=== PATIENT | male | born 1965 | race Caucasian/White ===

== ENCOUNTER 2018-08-22 14:51 | Emergency (ER) | payer OTHER ==
[~2018-08-22] VITALS: Ht 188 cm; Wt 93.4 kg
[~2018-08-22 14:51] MED LIST: CETI10 PO; CETI5 PO; ESZO3 PO; HYDACE5 PO; IBUPROFEN200 MG; ONDA4ODT MM; ONDA4ODT SL; Omeprazole20 M1; POLY17UD PO; ZOLP10 PO; ZOLP5 PO
[2018-08-22] MEDS ORDERED: ELIQUIS5 MG PO (15:34)
== END 2018-08-22 15:43 | disposition home or self-care (01) ==
LOC: ER 14:51
DX: I82.4Z1 Acute embolism and thrombosis of unspecified deep veins of right distal lower extremity (principal); Z88.5 Allergy status to narcotic agent; Z88.8 Allergy status to other drugs, medicaments and biological substances
CPT/HCPCS: 99282

== ENCOUNTER 2019-07-17 12:35 | Day surgery (SDC) | payer OTHER ==
[~2019-07-17 12:35] MED LIST changes: +ELIQUIS5 MG PO; -Omeprazole20 M1; +Omeprazole20 M1 PO
== END 2019-07-17 16:30 | disposition home or self-care (01) ==
LOC: ORSCSDS 12:35
PROVIDERS: Orthopaedic Surgery
PROC: 0SBD4ZZ Excision of Left Knee Joint, Percutaneous Endoscopic Approach (ICD-10-PCS; principal; 2019-07-17 13:45)
PROC: 0SQD4ZZ Repair Left Knee Joint, Percutaneous Endoscopic Approach (ICD-10-PCS; principal; 2019-07-17 13:45)
DX: S83.242A Other tear of medial meniscus, current injury, left knee, initial encounter (principal); M17.12 Unilateral primary osteoarthritis, left knee; M25.562 Pain in left knee; K21.9 Gastro-esophageal reflux disease without esophagitis; Z79.899 Other long term (current) drug therapy
CPT/HCPCS: A9270-GY; J0171; J0690; J1100; J1885; J2250; J2405; J2795; J3010

== ENCOUNTER → 2021-02-18 | Outpatient (CLI) | payer OTHER ==
[2021-02-25 09:19] LABS: Stool Occult Bld Immuno 1 Negative (NEGATIVE)
== END | disposition home or self-care (01) ==
LOC: LAB SHORT 09:00 → LAB 09:00 → LAB SHORT 02-24 09:00 → LAB 02-24 09:00
PROVIDERS: Family Medicine
DX: Z00.00 Encounter for general adult medical examination without abnormal findings (principal); Z87.19 Personal history of other diseases of the digestive system
CPT/HCPCS: G0328

== ENCOUNTER 2023-05-25 06:48 | Day surgery (SDC) | payer OTHER ==
[~2023-05-25] VITALS: Ht 188 cm; Wt 102.8 kg
[2023-05-25 08:48] VITALS: BP 110/81
== END 2023-05-25 08:52 | disposition home or self-care (01) ==
LOC: ORSCSDS 06:48
PROVIDERS: Surgery
PROC: 0DBP8ZX Excision of Rectum, Via Natural or Artificial Opening Endoscopic, Diagnostic (ICD-10-PCS; principal; 2023-05-25 08:00)
DX: Z12.11 Encounter for screening for malignant neoplasm of colon (principal); K62.1 Rectal polyp; Z79.899 Other long term (current) drug therapy
CPT/HCPCS: 88305; J2704; J7120

== ENCOUNTER 2024-08-15 06:58 | Day surgery (SDC) | payer OTHER ==
[~2024-08-15] VITALS: Ht 190.5 cm; Wt 107.7 kg
[2024-08-15] VITALS (11 sets, daily range): BP systolic 116–147; BP diastolic 72–89
[~2024-08-15 06:58] MED LIST changes: +Acetaminophen 500 MG Tab PO SCH; +CeFAZolin Sodium 2,000 MG VIAL ONE; +CeFAZolin Sodium 2,000 MG in NS 100 ML IV SCH; +Chlorhexidine Mouth Care 15 ML UDC MT SCH; +Lactated Ringer's 1,000 ML IV SCH; +OxyCODONE HCL 10 MG TABCR PO SCH; +Ropivacaine 0.5% HCl/Pf 123.125 MG,EPINEPHrine HCL 0.25 MG,Ketorolac Tromethamine 15 MG... INFIL SCH; +Tranexamic Acid 100 ML IV SCH
--- NOTE | 2024-08-15 07:36 | NUR ---
Ambulatory in Day Surgery History, Chart, Medications and Allergies reviewed before start of procedure. Pre-Op teaching done. Pt verbalizes understanding.
[2024-08-15] MEDS ORDERED: propofoL 40 ML IV ONE (08:46)
[2024-08-15] MEDS ORDERED: FentaNYL Citrate 50 MCG/ML 2 ML Injection ONE (08:46)
[2024-08-15] MEDS ORDERED: Midazolam HCl 1MG / ML 2ML Vial ONE (09:36)
[2024-08-15] MEDS ORDERED: Midazolam HCl 1MG / ML 2ML Vial IV SCH (09:40)
[2024-08-15] MEDS ORDERED: propofoL 100 ML IV ONE (09:46)
[2024-08-15] MEDS ORDERED: Bupivacaine 0.5% HCl 5 MG/ML 30MLVIAL ONE (09:49)
[2024-08-15] MEDS ORDERED: OxyCODONE HCL 5 MG TAB PO PRN ×2 (09:50→09:55)
[2024-08-15] MEDS ORDERED: DiphenhydrAMINE HCL 25 MG Cap PO PRN (09:55)
[2024-08-15] MEDS ORDERED: FLU VACC TS2024-25(6MOS UP)/PF 45 MCG/0.5 ML SYRINGE IM PRN (09:55)
[2024-08-15] MEDS ORDERED: Promethazine HCl 25 MG Tab PO PRN (09:55)
[2024-08-15] MEDS ORDERED: Bisacodyl 10 MG Supp PR PRN (09:55)
[2024-08-15] MEDS ORDERED: Ondansetron HCl 2 MG / ML 2ML Vial IV PRN (10:00)
[2024-08-15] MEDS ORDERED: HYDROmorphone HCl/Pf 1MG SYR IV PRN (10:00)
[2024-08-15] MEDS ORDERED: Magnesium Hydroxide Conc 10 ML UDC PO PRN (10:00)
[2024-08-15] MEDS ORDERED: Lactated Ringer's 1,000 ML IV SCH (10:00)
[2024-08-15] MEDS ORDERED: Metoclopramide HCl 5MG / ML 2ML Vial IV PRN (10:00)
[2024-08-15] MEDS ORDERED: ePHEDrine Sulfate 50 MG/ML 1ML Injection ONE (10:06)
--- NOTE | 2024-08-15 10:29 | NUR ---
08/15/24 1029 Cassidy,Malka SPINAL BLOCK COMPLETED BY UPON ENTRY TO OR. PATIENT TOLERATED WELL.
[2024-08-15] MEDS ORDERED: propofoL 20 ML IV ONE ×2 (10:51→11:03)
[2024-08-15] MEDS ORDERED: Ondansetron HCl 2 MG / ML 2ML Vial ONE (11:52)
[2024-08-15] MEDS ORDERED: Ketorolac Tromethamine 15mg Vial IV SCH (12:50)
[2024-08-15] MEDS ORDERED: Acetaminophen 500 MG Tab PO SCH (16:00)
--- NOTE | 2024-08-15 16:19 | NUR ---
Pt. is sitting up in a recliner when he welcomes my visit. Spouse is present at bedside. Facilitate a life review and re-establish rapport as Pt. is known to this financial economist from the community. Listen with empathy and interest. Pt. verbalized an expectation to be discharged this afternoon. Pt. displayed evidence of confidence. Both Pt. and spouse verbalized gratitude for the spiritual care visit.
[2024-08-15] MEDS ORDERED: ELIQUIS2.5 MG PO (16:48)
--- NOTE | 2024-08-15 17:05 | NUR ---
DISCHARGE PT HAS CLEARED THERAPY. PAIN WELL CONTROLLED. EATING, DRINKING, & VOIDING WELL. NATHALIA & JENNIFER PACK SENT w/ PT. ESCORTED OUT VIA W/C.
[2024-08-15] MEDS ORDERED: CeFAZolin Sodium 2,000 MG in NS 100 ML IV SCH (18:00)
[2024-08-15] MEDS ORDERED: Docusate Sodium 100 MG Cap PO SCH (21:00)
[2024-08-16] MEDS ORDERED: Omeprazole 20 MG CapCR PO SCH (06:00)
[2024-08-16] MEDS ORDERED: Apixaban 5 MG Tab PO SCH (09:00)
== END 2024-08-15 17:05 | disposition home or self-care (01) ==
LOC: ORSCMMR 06:58 → ORD 08:15 → ORSCMMR 08:15 → SURS 12:29 → ORSCMMR 17:05
PROVIDERS: Orthopaedic Surgery
PROC: 8E0Y0CZ Robotic Assisted Procedure of Lower Extremity, Open Approach (ICD-10-PCS; principal; 2024-08-15 08:15)
PROC: 0SRD0JA Replacement of Left Knee Joint with Synthetic Substitute, Uncemented, Open Approach (ICD-10-PCS; principal; 2024-08-15 08:15)
DX: M17.12 Unilateral primary osteoarthritis, left knee (principal); G47.33 Obstructive sleep apnea (adult) (pediatric)
CPT/HCPCS: 73560-LT; 97110; 97116; 97161; 97530; A9270; C1713; C1776; J0171; J0690; J0735; J1885; J2250; J2405; J2704; J2795; J3010; J7120

== ENCOUNTER 2024-10-30 15:54 | Inpatient (IN) | payer OTHER ==
[~2024-10-30] VITALS: Ht 190.5 cm; Wt 108.9 kg
[~2024-10-30 15:54] MED LIST changes: -Acetaminophen 500 MG Tab PO SCH; -CeFAZolin Sodium 2,000 MG VIAL ONE; -CeFAZolin Sodium 2,000 MG in NS 100 ML IV SCH; -Chlorhexidine Mouth Care 15 ML UDC MT SCH; +ELIQUIS2.5 MG PO; -Lactated Ringer's 1,000 ML IV SCH; -OxyCODONE HCL 10 MG TABCR PO SCH; -Ropivacaine 0.5% HCl/Pf 123.125 MG,EPINEPHrine HCL 0.25 MG,Ketorolac Tromethamine 15 MG... INFIL SCH; -Tranexamic Acid 100 ML IV SCH
[2024-10-30 16:49] LABS: BASOPHILS ABSOLUTE AUTO 0.05 K/mm3 (0.00-0.23); BASOPHILS PERCENT AUTO 1 % (0-2); EOSINOPHILS ABSOLUTE AUTO 0.26 K/mm3 (0.00-0.68); EOSINOPHILS PERCENT AUTO 4 % (0-6); Hematocrit 38.7 % (37.0-53.0); Hemoglobin 12.2 g/dL (13.5-17.5); IMMATURE GRAN ABSOLUTE AUTO 0.03 K/mm3 (0.00-0.10); IMMATURE GRAN PERCENT AUTO 0 % (0-1); LYMPHOCYTES PERCENT AUTO 20 % (21-46); MONOCYTES ABSOLUTE AUTO 0.71 K/mm3 (0.16-1.47); MONOCYTES PERCENT AUTO 10 % (4-13); Mean Corpuscular HGB 24.1 pg (26.0-34.0); Mean Corpuscular HGB Conc 31.5 g/dL (31.5-36.5); Mean Corpuscular Volume 77 fL (80-100); NEUTROPHILS ABSOLUTE AUTO 4.53 K/mm3 (1.96-9.15); NEUTROPHILS PERCENT AUTO 65 % (41-73); RDW Coefficient Variation 15.2 % (11.7-14.2); RDW Standard Deviation 41.7 fL (35.1-46.3); Red Blood Cell Count 5.06 M/mm3 (4.30-5.90); White Blood Cell Count 6.98 K/mm3 (4.00-11.30)
[2024-10-30 17:04] LABS: Albumin, Blood 3.9 g/dL (3.4-5.0); Bilirubin, Total 0.4 mg/dL (0.1-1.0); Bun/Creatinine Ratio 17.2 (12.0-20.0); Calcium, Blood 9.5 mg/dL (8.5-10.1); Creatinine, Blood 0.99 mg/dL (0.60-1.20); Globulin, Blood 4.1 g/dL (2.2-4.0); Potassium, Blood 3.8 mmol/L (3.5-5.5)
[2024-10-30 17:07] LABS: Mean Platelet Volume 11.1 fL (9.1-12.4); Platelet Count 228 K/mm3 (150-400)
[2024-10-30] MEDS ORDERED: HYDROmorphone HCl/Pf 1MG SYR IV ONE (19:30)
[2024-10-30 19:34] LABS: Source, Urine Clean Catch
[2024-10-30 19:39] LABS: Appearance, Urine Clear (Clear); Bilirubin, Urine Neg (Neg); Blood, Urine Neg (Neg); Glucose Qualitative, Urine Neg (Neg); Ketones, Urine Neg (Neg); Leukocyte Esterase, Urine Neg (Neg); Nitrite, Urine Neg (Neg); Protein, Urine Neg (Neg); Urobilinogen, Urine NORM (Normal)
[2024-10-30 19:40] LABS: Color, Urine Pale Yellow (P-Yellow)
[2024-10-30] MEDS ORDERED: NS 1,000 ML IV SCH (19:40)
[2024-10-30] MEDS ORDERED: HYDROmorphone HCl/Pf 1MG SYR IV PRN (20:15)
[2024-10-30] MEDS ORDERED: Lactated Ringer's 1,000 ML IV SCH (20:15)
[2024-10-30] MEDS ORDERED: Ondansetron HCl 2 MG / ML 2ML Vial IV PRN (20:15)
[2024-10-30] MEDS ORDERED: FLU VACC TS2024-25(6MOS UP)/PF 45 MCG/0.5 ML SYRINGE IM ONE (20:20)
[2024-10-30] MEDS ORDERED: Ketorolac Tromethamine 15mg Vial IV PRN (20:30)
[2024-10-30] MEDS ORDERED: Famotidine 20 MG Tab PO SCH (21:00)
[2024-10-31] VITALS (16 sets, daily range): BP systolic 136–173; BP diastolic 78–96
[2024-10-31] MEDS ORDERED: Piperacillin/Tazobactam Sod 3.375 GM in NS 100 ML IV SCH
[2024-10-31] MEDS ORDERED: DiphenhydrAMINE HCl 50 MG/ML 1ML Vial IV ONE (04:05)
[2024-10-31 05:11] LABS: BASOPHILS ABSOLUTE AUTO 0.05 K/mm3 (0.00-0.23); BASOPHILS PERCENT AUTO 1 % (0-2); EOSINOPHILS PERCENT AUTO 4 % (0-6); Hematocrit 34.1 % (37.0-53.0); Hemoglobin 10.5 g/dL (13.5-17.5); IMMATURE GRAN ABSOLUTE AUTO 0.01 K/mm3 (0.00-0.10); IMMATURE GRAN PERCENT AUTO 0 % (0-1); LYMPHOCYTES ABSOLUTE AUTO 1.26 K/mm3 (0.84-5.20); LYMPHOCYTES PERCENT AUTO 25 % (21-46); MONOCYTES ABSOLUTE AUTO 0.56 K/mm3 (0.16-1.47); MONOCYTES PERCENT AUTO 11 % (4-13); Mean Corpuscular HGB Conc 30.8 g/dL (31.5-36.5); Mean Corpuscular Volume 78 fL (80-100); Mean Platelet Volume 10.5 fL (9.1-12.4); NEUTROPHILS ABSOLUTE AUTO 3.05 K/mm3 (1.96-9.15); NEUTROPHILS PERCENT AUTO 59 % (41-73); Platelet Count 263 K/mm3 (150-400); RDW Coefficient Variation 15.3 % (11.7-14.2); RDW Standard Deviation 42.8 fL (35.1-46.3); Red Blood Cell Count 4.38 M/mm3 (4.30-5.90); White Blood Cell Count 5.13 K/mm3 (4.00-11.30)
[2024-10-31 05:31] LABS: Bun/Creatinine Ratio 17.1 (12.0-20.0); Calcium, Blood 8.5 mg/dL (8.5-10.1); Creatinine, Blood 0.99 mg/dL (0.60-1.20); Potassium, Blood 3.9 mmol/L (3.5-5.5)
[2024-10-31] MEDS ORDERED: DiphenhydrAMINE HCL 25 MG Cap PO PRN (08:55)
[2024-10-31] MEDS ORDERED: Lactated Ringer's 1,000 ML IV SCH (09:40)
--- NOTE | 2024-10-31 10:26 | NUR ---
PT HAS 20G IV TO LEFT AC THAT FLUSHES WELL AND FLOWS TO GRAVITY.
--- NOTE | 2024-10-31 10:30 | NUR ---
pt to preop at approx 1020.
[2024-10-31] MEDS ORDERED: Sugammadex Sodium 200 MG/2ML SDV (100 MG/ML) ONE (10:33)
[2024-10-31] MEDS ORDERED: propofoL 20 ML IV ONE (10:33)
[2024-10-31] MEDS ORDERED: FentaNYL Citrate 50 MCG/ML 2 ML Injection ONE (10:33)
[2024-10-31] MEDS ORDERED: Ondansetron HCl 2 MG / ML 2ML Vial ONE ×2 (10:35→13:55)
[2024-10-31] MEDS ORDERED: Dexamethasone Sod Phos 10 MG/ML 1ML VIAL ONE (10:35)
--- NOTE | 2024-10-31 10:36 | NUR ---
PT BROUGHT FROM FLOOR TO DAY SURGERY FOR PROCEDURE. History, Chart, Medications and Allergies reviewed before start of procedure. Lungs clear T/O to Auscultation. Patient confirms NPO status and agrees with scheduled surgery. Pre-Op teaching done. Pt verbalizes understanding. PT BELONGINGS LEFT IN PERSONAL ROOM ON SURGICAL FLOOR.
[2024-10-31] MEDS ORDERED: Rocuronium Bromide 10 MG/ML 5ML Injection IV ONE (10:37)
[2024-10-31] MEDS ORDERED: Midazolam HCl 1MG / ML 2ML Vial IV ONE (11:05)
[2024-10-31] MEDS ORDERED: Bupivacaine 0.5% HCl 5 MG/ML 30MLVIAL ONE (11:06)
--- NOTE | 2024-10-31 12:08 | NUR ---
10/31/24 NICKY VIDES PATIENT ON SCHEDULED ANTIBIOTICS, NO INTRAOPERATIVE ANTIBIOTICS ORDERED.
[2024-10-31] MEDS ORDERED: Metoclopramide HCl 5MG / ML 2ML Vial ONE (14:08)
[2024-10-31] MEDS ORDERED: HYDROcodone 5-APAP 325 TAB PO PRN (14:40)
--- NOTE | 2024-10-31 14:46 | NUR ---
PT ARRIVED TO 226 FROM PACU. TRANSFERRED PT FROM [facility] TO BED. CALL LIGHT IN REACH. VSS. PT ON 2L NC. LCA W/DIM BASES. HRR. LAP INCISIONS X3 TO ABD W/GAUZE AND TEGADERM CDI. PT REPORTED 7/10 PAIN. MEDICATED PER ORDERS. PROVIDED CLEAR LIQUIDS. PT RESTING IN BED.
--- NOTE | 2024-10-31 17:23 | NUR ---
Pt. is awake and welcomes my visit. Spouse is at bediside. Facilitated a life review though the Pt. is known to this assistant professor in family studies from the community. Listen with empathy and a calming presence. Nurses arrived to check vitals so the visit is cut short. Both Pt. and Spouse verbalize gratitude for the spiritual care visit.
--- NOTE | 2024-10-31 18:24 | NUR ---
SUMMARY NO ACUTE CHANGES SINCE ARRIVING TO UNIT FROM PACU. MEDICATED PER ORDERS FOR PAIN. PT HAS VOIDED. REGULAR DIET ORDERED. ADVISED PT TO TAKE SLOWLY. PT TOLERATED CLEARS AND CRACKERS. SPOUSE BEDSIDE. CALL LIGHT IN REACH.
[2024-11-01 00:04] VITALS: BP 133/78
--- NOTE | 2024-11-01 04:05 | NUR ---
SHIFT SUMMARY POD 1 LAP APPY. NO ACUTE CHANGES OVERNIGHT. VSS. TOLERATING ORALS. AMB IND. VOIDING. LAP SITE x3 c GAUZE/TEG C/D/I. PT REPORTS PAIN TOLERABLE, MEDICATED PER EMAR. CALL LIGHT IN REACH, BED IN LOWEST POSITION, WILL REPORT TO DAY RN.
[2024-11-01 04:47] VITALS: BP 140/79
[2024-11-01 07:46] VITALS: BP 139/79
[2024-11-01 11:04] VITALS: BP 151/85
--- NOTE | 2024-11-01 11:10 | NUR ---
PT REPORTED SOME REDNESS/FLUSHING IN HIS CHEEKS AT THIS TIME, NO SWELLING. AND A LITTLE ITCHING. PT REPORTS THAT SOME PAIN MEDICATIONS CAUSE HIM ITCHING, BUT HE HASN'T HAD THE REDNESS BEFORE. PT GIVEN PO BENADRYL, VSS. WILL MONITOR
[2024-11-01] MEDS ORDERED: Norco 5-325 Ta1 EACH PO (11:41)
--- NOTE | 2024-11-01 12:53 | NUR ---
DISCHARGE: PACKET PRINTED AND PT EDUCATED. IV DC'D WNL, TIP INTACT. PT LEFT UNIT WALKING WITH HIS AT ABOUT 1120
== END 2024-11-01 12:17 | disposition home or self-care (01) | DRG 337 ==
LOC: ER 15:54 → SURS 15:55 → ERHOLD 15:55 → SURS 10-31 07:41
PROVIDERS: Student in an Organized Health Care Education/Training Program; ADMIT Surgery
PROC: 0DTJ4ZZ Resection of Appendix, Percutaneous Endoscopic Approach (ICD-10-PCS; 2024-10-31)
PROC: 0DNW4ZZ Release Peritoneum, Percutaneous Endoscopic Approach (ICD-10-PCS; principal; 2024-10-31 10:30)
DX: K35.32 Acute appendicitis with perforation, localized peritonitis, and gangrene, without abscess (principal); K21.9 Gastro-esophageal reflux disease without esophagitis; Z90.49 Acquired absence of other specified parts of digestive tract; K66.0 Peritoneal adhesions (postprocedural) (postinfection); E66.9 Obesity, unspecified; G47.33 Obstructive sleep apnea (adult) (pediatric); Z98.890 Other specified postprocedural states; Z96.652 Presence of left artificial knee joint; Z93.3 Colostomy status; Z90.89 Acquired absence of other organs; Z68.30 Body mass index [BMI] 30.0-30.9, adult
CPT/HCPCS: 80048; 80053; 81003; 83690; 85025; 88304; 96361; 96374; 99284-25; A9270; J1100; J1171; J1200; J1885; J2250; J2405; J2543; J2704; J2765; J3010; J7030; J7120